=== PATIENT | female | born 2000 | race Caucasian/White ===

== ENCOUNTER 2021-02-07 12:35 | Emergency (ER) | payer BC, MEDICAID ==
[~2021-02-07] VITALS: Ht 160 cm; Wt 79.5 kg
[~2021-02-07 12:35] MED LIST: DESYREL 50MG50 MG; INDERAL 10MG10 MG PO; PRILOSEC 20MG20 MG PO; ZOFRAN ODT4 MG PO; ZOLOFT 100MG100 MG
[2021-02-07 13:17] LABS: COLLECTION METHOD CLEAN CATCH
[2021-02-07 13:25] LABS: MUCOUS Present /lpf; PH 6 (5-8); SQUAMOUS EPITHELIAL 0-2 /hpf; URINE APPEARANCE Hazy; URINE BACTERIA None Seen /hpf; URINE BILIRUBIN Negative (NEGATIVE); URINE BLOOD Negative (NEGATIVE); URINE COLOR Amber; URINE GLUCOSE Negative (NEGATIVE); URINE KETONE 1+ (NEGATIVE); URINE LEUKOCYTE ESTERASE Negative (NEGATIVE); URINE NITRATE Negative (NEGATIVE); URINE PROTEIN(semi-quant) 3+ (NEGATIVE); URINE RBC 0-2 /hpf; URINE UROBILINOGEN Negative (NEGATIVE)
[2021-02-07 13:31] LABS: BASO # 0.1 (0.0-0.2); BASO % 0.7 % (0.0-2.0); EOS # 0.1 (0.0-0.7); EOS % 0.9 % (0-4.0); GRAN % 56.9 % (42.2-75.2); HEMATOCRIT 43.5 % (35.0-45.0); HEMOGLOBIN 15.1 g/dl (12.0-15.0); LYMPH # 2.9 (1.2-3.4); LYMPH % 33.5 % (20.0-51.0); MEAN CELL VOLUME 91 fl (80.0-95.0); MEAN CORPUSCULAR HEMOGLOBIN 32 pg (26.0-32.0); MEAN CORPUSCULAR HGB CONC 35 g/dl (33.0-37.0); MEAN PLATELET VOLUME 9.6 fl (7.4-10.4); MONO # 0.7 (0.1-0.6); MONO % 7.8 % (1.7-9.3); PLATELET COUNT 293 K/mm3 (130-400); RED BLOOD COUNT 4.78 M/mm3 (4.10-5.30); REDCELL DISTRIBUTION WIDTH-CV 11.9 % (11.5-14.5)
[2021-02-07 13:46] LABS: ALANINE AMINOTRANSFERASE 14 U/L (4-34); ALBUMIN 5.1 gm/dL (3.5-5.0); ALKALINE PHOSPHATASE 74 U/L (50-136); ANION GAP 15 mmol/L (7-16); AST,SGOT 32 U/L (15-37); BILIRUBIN,TOTAL 1.5 mg/dL (0.0-1.0); BLOOD UREA NITROGEN 14 mg/dL (7-17); CALCIUM 10.2 mg/dL (8.4-10.2); CARBON DIOXIDE 19 mmol/L (22-30); CHLORIDE 109 mmol/L (98-107); CREATININE, serum 1.01 (0.52-1.25); GLUCOSE 102 mg/dL (74-106); POTASSIUM 3.9 mmol/L (3.4-5.0); SODIUM 143 mmol/L (137-145); TOTAL PROTEIN 8.6 gm/dL (6.4-8.2)
[2021-02-07 14:02] LABS: TROPONIN-I < 0.012 ng/mL (0.000-0.035)
[2021-02-07 14:09] LABS: LIPASE 35 U/L (23-300)
[2021-02-07] MEDS ORDERED: PEPCID 20MG TAB20 MG PO (14:22)
[2021-02-07 14:50] VITALS: PULSE 88; TEMP 98.3
[2021-02-07 16:26] VITALS: BP 130/88
== END 2021-02-07 14:55 | disposition home or self-care (01) ==
LOC: COL.ER 12:35
PROVIDERS: Emergency Medicine
DX: K21.00 Gastro-esophageal reflux disease with esophagitis, without bleeding (principal)
CPT/HCPCS: C9113; J2405

== ENCOUNTER 2021-09-18 11:48 | Emergency (ER) | payer BC, MEDICAID ==
[~2021-09-18 11:48] MED LIST changes: +PEPCID 20MG TAB20 MG PO
[2021-09-18 12:04] VITALS: TEMP 98.6
[2021-09-18 13:50] VITALS: BP 125/75; PULSE 81
== END 2021-09-18 13:50 | disposition home or self-care (01) ==
LOC: COL.ER 11:48
DX: R51.9 Headache, unspecified (principal); Z86.16 Personal history of COVID-19
CPT/HCPCS: J1200; J1885